=== PATIENT | female | born 1995 | race African-American/Black ===

== ENCOUNTER 2019-10-12 16:11 | Emergency (ER) | payer MEDICAID ==
--- NOTE | 2019-10-12 18:12 | RADIOLOGY REPORT (SQ) ---
EXAM DESCRIPTION: CHEST SINGLE VIEW IMAGES COMPLETED DATE/TIME: 10/12/2019 5:51 pm REASON FOR STUDY: cough COMPARISON: None. EXAM PARAMETERS: NUMBER OF VIEWS: One view. TECHNIQUE: Single frontal radiographic view of the chest acquired. RADIATION DOSE: NA LIMITATIONS: None. FINDINGS: LUNGS AND PLEURA: No opacities, masses or pneumothorax. No pleural effusion. MEDIASTINUM AND HILAR STRUCTURES: No masses. Contour normal. HEART AND VASCULAR STRUCTURES: Heart normal in size. Normal vasculature. BONES: No acute findings. HARDWARE: None in the chest. OTHER: No other significant finding. IMPRESSION: NO ACUTE RADIOGRAPHIC FINDING IN THE CHEST. TECHNICAL DOCUMENTATION: JOB ID: [id number] [employer]- All Rights Reserved Reading location - IP/workstation name: [email or web address]
--- NOTE | 2019-10-12 18:45 | ER Document Report ---
ED Fever - General Chief Complaint: Fever Stated Complaint: FEVER Time Seen by Provider: 10/12/19 17:20 Mode of Arrival: Ambulatory Information source: Patient Notes: Patient is a 21-year-old female comes emergency room stating she woke up this morning with a fever only lasted about an hour and it broke. States that she works at [employer] wears a mask on the time and has had no COVID a ssociations. She denies any shortness of breath no sore throat no loss of smell or taste. She has had no diarrhea nausea or vomiting. States that she only took 1 ibuprofen yesterday before all this started. She feels better now but wants to make sure nothing is wrong. TRAVEL OUTSIDE OF THE [place] IN LAST 30 DAYS: No - HPI Onset: Yesterday Onset/Duration: Sudden Quality of pain: Achy Severity: Mild Pain Level: 1 Associated symptoms: Chills, Nonproductive cough, Fever Similar symptoms previously: No Recently seen / treated by doctor: No - Related Data Allergies/Adverse Reactions: No Known Allergies Allergy (Unverified 10/12/19 17:42) Past Medical History - General Information source: Patient - Social History Smoking Status: Current Every Day Smoker Cigarette use (# per day): Yes - Half pack Chew tobacco use (# tins/day): No Smoking Education Provided: Yes Frequency of alcohol use: Occasional Drug Abuse: None Lives with: Family Family History: Reviewed & Not Pertinent Patient has homicidal ideation: No Review of Systems - Review of Systems Constitutional: Fever EENT: See HPI, Nose congestion Cardiovascular: No symptoms reported Respiratory: See HPI, Cough Gastrointestinal: No symptoms reported Genitourinary: No symptoms reported Female Genitourinary: No symptoms reported Musculoskeletal: No symptoms reported Skin: No symptoms reported Hematologic/Lymphatic: No symptoms reported Neurological/Psychological: No symptoms reported -: Yes All other systems reviewed and negative Physical Exam - Vital signs Vitals: Temp Pulse Resp BP Pulse Ox 98.7 F 85 16 113/67 100 10/12/19 16:47 10/12/19 16:47 10/12/19 16:47 10/12/19 16:47 10/12/19 16:47 Interpretation: Normal - Notes Notes: PHYSICAL EXAMINATION: GENERAL: Well-appearing, well-nourished and in no acute distress. HEAD: Atraumatic, normocephalic. EYES: Pupils equal round and reactive to light, extraocular movements intact, conjunctiva are normal. ENT: Examination upper airway showed nasal mucosa be mildly erythematous edematous with no rhinorrhea noted. No frontal or maxillary tenderness to palpation. Bilateral TMs appear normal no bulging or retracting. Posterior pharynx shows no erythema no exudates tonsils are normal. Uvula is normal with no erythema no exudate. Airway is patent. NECK: Normal range of motion, supple without lymphadenopathy LUNGS: Breath sounds clear to auscultation bilaterally and equal. No wheezes rales or rhonchi. HEART: Regular rate and rhythm without murmurs NEUROLOGICAL: . Normal speech, normal gait. Normal sensory, motor exams PSYCH: Normal mood, normal affect. SKIN: Warm, Dry, normal turgor, no rashes or lesions noted. Course - Re-evaluation Re-evalutation: 10/12/19 18:45 I offered patient the opportunity to have a COVID test done but she does not want that she is only wanting to get a work excuse. - Vital Signs Vital signs: Temp Pulse Resp BP Pulse Ox 98.7 F 76 16 110/68 100 10/12/19 19:13 10/12/19 19:13 10/12/19 19:13 10/12/19 19:13 10/12/19 19:13 Discharge - Discharge Clinical Impression: Upper respiratory infection Qualifiers: URI type: unspecified URI Qualified Code(s): J06.9 - Acute upper respiratory infection, unspecified Condition: Stable Disposition: HOME, SELF-CARE Instructions: Fever ([facility]), Stop Smoking ([facility]), Upper Respiratory Illness ([facility]) Additional Instructions: Home and rest. You can continue taking ibuprofen or Tylenol for any aches pains or spiking fever. Your chest x-ray was normal no acute findings were found. At this time feel safe you to go home and return to work tomorrow. You can get an antihistamine [id number] like Mucinex/Zyrtec and take it for your congestion runny nose. If you should run a fever you can take a little Tylenol alternate with Motrin and if you should get worsening symptoms he can return to ER for reevaluation. Forms: Smoking Cessation Education, Return to Work
[2019-10-12 19:15] VITALS: BP 110/68
== END 2019-10-12 19:14 | disposition home or self-care (01) ==
LOC: ER 16:11
DX: J06.9 Acute upper respiratory infection, unspecified (principal); R05 Cough; R50.9 Fever, unspecified; R09.81 Nasal congestion; F17.210 Nicotine dependence, cigarettes, uncomplicated
CPT/HCPCS: 71045; 99283

== ENCOUNTER 2019-12-12 19:08 | Emergency (ER) | payer MEDICAID ==
--- NOTE | 2019-12-12 19:37 | EKG REPORT ---
SEVERITY:- BORDERLINE ECG - SINUS RHYTHM : Confirmed by: Rubén Teresa MD 12-Dec-2019 19:36:24
--- NOTE | 2019-12-12 20:05 | ER Document Report ---
ED Medical Screen (RME) - General Chief Complaint: Shortness Of Breath Stated Complaint: TIGHTNESS IN CHEST Time Seen by Provider: 12/12/19 19:59 Mode of Arrival: Ambulatory Information source: Patient Notes: 24-year-old female presented to ED for chest tightness shortness of breath and runny nose. She states the whole upper area of her chest is sore. She states she woke up this way this morning. She does not have any fevers or loss of sense of taste or smell. Patient is alert oriented respirations regular and unlabored speaking in full sentences. Will get blood urine chest x-ray flu and strep. I have greeted and performed a rapid initial assessment of this patient. A comprehensive ED assessment and evaluation of the patient, analysis of test results and completion of medical decision making process will be conducted by an additional ED providers. TRAVEL OUTSIDE OF THE [place] IN LAST 30 DAYS: No - Related Data Allergies/Adverse Reactions: No Known Allergies Allergy (Unverified 10/12/19 17:42) Past Medical History - Social History Frequency of alcohol use: Occasional Drug Abuse: None Physical Exam - Vital signs Vitals: Temp Pulse Resp BP Pulse Ox 98.3 F 86 16 115/68 98 12/12/19 19:27 12/12/19 19:27 12/12/19 19:27 12/12/19 19:27 12/12/19 19:27 Course - Vital Signs Vital signs: Temp Pulse Resp BP Pulse Ox 98.3 F 86 16 115/68 98 12/12/19 19:27 12/12/19 19:27 12/12/19 19:27 12/12/19 19:27 12/12/19 19:27
--- NOTE | 2019-12-12 21:07 | RADIOLOGY REPORT (SQ) ---
EXAM DESCRIPTION: XR CHEST 1 VIEW COMPLETED DATE/TME: 12/12/2019 20:03 CLINICAL HISTORY: 24 years, Female, short of breath chest tightness COMPARISON: 10/12/2019 TECHNIQUE: Portable chest x-ray FINDINGS: Cardiomediastinal silhouette is not enlarged. Minimal bronchial wall thickening. No definite consolidation or pleural disease. IMPRESSION: Question bronchitis. No definite consolidation.
[2019-12-12] MEDS ORDERED: KETOROLAC TROMETHAMINE 60 MG/2 ML SDV IM ONE (23:07)
--- NOTE | 2019-12-12 23:08 | ER Document Report ---
ED General - General Chief Complaint: Chest Pain Stated Complaint: TIGHTNESS IN CHEST Time Seen by Provider: 12/12/19 19:59 Mode of Arrival: Ambulatory Notes: CHIEF COMPLAINT:chest wall pain HPI: 24-year-old female presenting to the emergency department complaining of chest wall pain. Patient believes that it came from lifting heavy objects at work yesterday. She states she woke up with pain across the upper chest that changes with certain positions movements or palpation. Patient denies any fever, cough, runny nose, sore throat, shortness of breath on this. She took no medications for her symptoms. ROS: See HPI - all other systems were reviewed and are otherwise negative Constitutional: no fever Eyes: no drainage, no blurred vision ENT: no runny nose, no sore throat Cardiovascular: Positive chest wall pain Resp: no SOB, no cough GI: no vomiting, no diarrhea, no abdominal pain : no dysuria Integumentary: no rash Allergy: no hives Musculoskeletal: no extremity pain or swelling Neurological: no numbness/tingling, no weakness MEDICATIONS: I agree with the patient medications as charted by the RN. ALLERGIES: I agree with the allergies as charted by the RN. PAST MEDICAL HISTORY/PAST SURGICAL HISTORY: Reviewed and agree as charted by RN. SOCIAL HISTORY: Reviewed and agree as charted by RN. FAMILY HISTORY: No significant familial comorbid conditions directly related to patient complaint EXAM: Reviewed vital signs as charted by RN. CONSTITUTIONAL: Alert and oriented and responds appropriately to questions. Well-appearing; well-nourished HEAD: Normocephalic; atraumatic EYES: PERRL; Conjunctivae clear, sclerae non-icteric ENT: normal nose; no rhinorrhea; moist mucous membranes; pharynx without lesions noted, no uvula edema or deviation, no tonsillar hypertrophy, phonation normal NECK: Supple without meningismus; non-tender; no cervical lymphadenopathy, no masses CARD: RRR; no murmurs, no clicks, no rubs, no gallops; symmetric distal pulses RESP: Normal chest excursion without splinting or tachypnea; breath sounds clear and equal bilaterally; no wheezes, no rhonchi, no rales, pulse oximetry 100% on room air not hypoxic. Mild tenderness across the bilateral upper anterior chest wall to palpation or rotation of the trunk ABD/GI: Normal bowel sounds; non-distended; soft, non-tender, no rebound, no guarding; no palpable organomegaly or masses. BACK: The back appears normal and is non-tender to palpation, there is no CVA tenderness EXT: Normal ROM in all joints; non-tender to palpation; no cyanosis, no effusions, no edema SKIN: Normal color for age and race; warm; dry; good turgor; no acute lesions noted NEURO: Moves all extremities equally; Motor and sensory function intact PSYCH: The patient's mood and manner are appropriate. Grooming and personal hygiene are appropriate. MDM: 24-year-old otherwise healthy female who has had absolutely no upper respiratory symptoms presenting for chest wall pain. It is completely reproducible. EKG normal sinus rhythm with a ventricular rate of 73, TN 152, QT 376, QTc 415. No other ectopy normal EKG. Initial screening work-up ordered via triage process, I have canceled the orders as I have a very low suspicion fo r ACS in this patient with reproducible pain after heavy lifting. We will place her on anti-inflammatories have given strict return precautions. Patient is requesting a work note TRAVEL OUTSIDE OF THE [place] IN LAST 30 DAYS: No - Related Data Allergies/Adverse Reactions: No Known Allergies Allergy (Unverified 10/12/19 17:42) Past Medical History - General Information source: Patient - Social History Smoking Status: Former Smoker Frequency of alcohol use: Occasional Drug Abuse: None Family History: Reviewed & Not Pertinent Patient has homicidal ideation: No Physical Exam - Vital signs Vitals: Temp Pulse Resp BP Pulse Ox 98.3 F 86 16 115/68 98 12/12/19 19:27 12/12/19 19:27 12/12/19 19:27 12/12/19 19:27 12/12/19 19:27 Course - Vital Signs Vital signs: Temp Pulse Resp BP Pulse Ox 98.3 F 86 16 115/68 98 12/12/19 19:27 12/12/19 19:27 12/12/19 19:27 12/12/19 19:27 12/12/19 19:27 Discharge - Discharge Clinical Impression: Chest wall pain Condition: Stable Disposition: HOME, SELF-CARE Additional Instructions: Warm compresses to the chest wall to help with muscle soreness. Take the Voltaren to help with muscle pain. Follow-up with your primary care provider for reevaluation of symptoms call for appointment. If you develop fever greater than 101, worsening chest pain or develop shortness of breath return for reevaluation Prescriptions: Diclofenac Sodium [Voltaren 50 Mg Tablet.] 50 mg PO BID #20 tablet.dr Forms: Return to Work Referrals: CRISTA TORRES MD [COMMUNITY BASED STAFF] - Follow up as needed
[2019-12-12 23:23] VITALS: BP 114/83
== END 2019-12-12 23:42 | disposition home or self-care (01) ==
LOC: ER 19:08
DX: R07.89 Other chest pain (principal); Z87.891 Personal history of nicotine dependence
CPT/HCPCS: 93005; 99284; 96372; 71045; 93010; J1885